=== PATIENT | male | born 1995 | race African-American/Black ===

== ENCOUNTER 2022-01-31 12:09 | Emergency (ER) | payer MEDICAID ==
[~2022-01-31] VITALS: Ht 185.4 cm; Wt 109.0 kg
[2022-01-31 12:18] VITALS: BP 144/64
[2022-01-31] MEDS ORDERED: CYCL-1 PO (14:42)
== END 2022-01-31 15:00 | disposition home or self-care (01) ==
LOC: ER 12:10
DX: S46.912A Strain of unspecified muscle, fascia and tendon at shoulder and upper arm level, left arm, initial encounter (principal); Z79.899 Other long term (current) drug therapy; V87.7XXA Person injured in collision between other specified motor vehicles (traffic), initial encounter; Y93.89 Activity, other specified; Y92.488 Other paved roadways as the place of occurrence of the external cause; Y99.8 Other external cause status
CPT/HCPCS: 73000; 99283